=== PATIENT | female | born 1955 | race Caucasian/White ===

== ENCOUNTER 2016-09-14 15:00 | Day surgery (SDC) | payer OTHER ==
[~2016-09-14] VITALS: Ht 167.6 cm; Wt 65.5 kg
[2016-09-14 15:58] VITALS: Ht 167.6 cm; Wt 65.5 kg
[2016-09-14] MEDS ORDERED: NO HOME MEDS (16:04)
[2016-09-14 16:35] VITALS: BP 127/73; PULSE 45; RESP 20
[2016-09-14] MEDS ORDERED: MIDAZOLAM 1 MG/ML 2 ML INJ ONE ×2 (17:53)
[2016-09-14] MEDS ORDERED: FENTAnyl 50 MCG/ML VIAL ONE (17:53)
[2016-09-14 18:03] VITALS: BP 132/66; PULSE 51; RESP 18
--- NOTE | 2016-10-10 08:28 | GILP ---
DATE OF PROCEDURE: SURGEON: Buck Hummel MD PROCEDURE PERFORMED: 1. Esophagogastroduodenoscopy and biopsy. 2. Colonoscopy. PREOPERATIVE DIAGNOSES: 1. Abdominal pain. 2. Screening colonoscopy. POSTOPERATIVE DIAGNOSES: 1. Gastritis. 2. Gastric mucosal biopsies were taken for Helicobacter pylori test. 3. Colonoscopy all the way to the cecum. 4. Internal hemorrhoids. 5. No colon neoplasm was identified. INDICATION: The patient is a 61-year-old female patient who had upper abdominal pain, not responding to therapy. The patient also had a change in the bowel habits. She has a history of colon polyps. The patient was scheduled for endoscopy and colonoscopy for further evaluation. The procedures and possible complications were well-explained to the patient. The patient understood and consented to the procedures. DESCRIPTION OF PROCEDURE: Under influence of fentanyl and Versed, the gastroscope was carefully introduced into the esophagus. Under direct vision it was advanced into the stomach, into the pylorus, into the duodenal bulb, and descending duodenum. FINDINGS: Esophagus: The esophageal mucosa was normal. Stomach: The patient had gastritis with erosions. Gastric mucosal biopsies were taken for H pylori test. The duodenum was normal. COLONOSCOPY: The colonoscope was carefully introduced into the rectum and under direct vision it was advanced all the way to the cecum. Findings: The patient was noted to have internal hemorrhoids. No colon neoplasm was identified. The patient tolerated the procedures very well. There was no complications from the procedures. At the end of the procedures the patient was awake with stable vital signs. The patient was discharged home to the care of her family. IMPRESSION: Please see postoperative diagnoses. PLAN: 1. Omeprazole 40 mg orally every day morning. 2. Next screening colonoscopy in 10 years. Dictated By: MD FRANCA Padilla/rylie/rena /Document#: [id number]
== END 2016-09-14 18:34 | disposition home or self-care (01) ==
LOC: GIL 15:00
PROVIDERS: ATTEND Internal Medicine Gastroenterology
DX: Z12.11 Encounter for screening for malignant neoplasm of colon (principal); K29.70 Gastritis, unspecified, without bleeding; K64.8 Other hemorrhoids
CPT/HCPCS: 43239; 45378; 87081; J2250; J3010; Z7610